=== PATIENT | female | born 1990 | race Caucasian/White ===

== ENCOUNTER 2016-09-10 08:44 | Emergency (ER) | payer OTHER ==
[~2016-09-10 08:44] MED LIST: CARDIZEM30 MG PO; METOPROLOL TART25 MG PO
== END 2016-09-10 10:20 | disposition home or self-care (01) ==
LOC: ER1 08:44
DX: K04.7 Periapical abscess without sinus (principal); F17.200 Nicotine dependence, unspecified, uncomplicated; Z88.6 Allergy status to analgesic agent
CPT/HCPCS: 99282

== ENCOUNTER → 2020-06-22 | Outpatient (CLI) | payer OTHER ==
[~2020-06-22] MED LIST changes: +AUGMENTIN 875-1 EACH PO; +BACTRIM DS TAB1 EACH PO; +BENTYL 20MG TAB20 MG PO; +BETAPACE 80MG T80 MG PO; +CEPHALEXIN500 MG PO; +CLINDAMYCIN HC300 MG PO; +DILTIAZEM ER120 M1 PO; +EFFEXOR XR 150150 MG PO; +EFFIENT PO; +HYDROCODONE-AC1 EACH PO; +IBUPROFEN600 MG PO; +IBUPROFEN800 MG PO; +LEVOTHYROXINE25 MC1 PO; +LEVOTHYROXINE25 MCG PO; +MACROBID 100 M100 MG PO; +NORFLEX 100 MG100 MG PO; +OMEPRAZOLE20 MG PO; +SOTALOL80 MG PO; +TOPAMAX50 MG PO; +ZOFRAN ODT 4 MG4 MG PO
== END ==
LOC: HEART 5 09:00
DX: R00.2 Palpitations (principal); R06.02 Shortness of breath; R07.9 Chest pain, unspecified; R55 Syncope and collapse; R53.83 Other fatigue; I51.7 Cardiomegaly
CPT/HCPCS: 93306

== ENCOUNTER → 2020-06-23 | Outpatient (CLI) | payer OTHER ==
[2020-06-23 12:32] LABS: RED BLOOD COUNT 4.37 M/UL (4.00-5.10); WHITE BLOOD COUNT 6.1 K/UL (4.5-11.0)
[2020-06-23 12:56] LABS: BUN/CREATININE RATIO 8 (0-10)
== END ==
LOC: LAB 11:55
PROVIDERS: Internal Medicine Cardiovascular Disease
DX: R07.9 Chest pain, unspecified (principal); R53.83 Other fatigue; R00.2 Palpitations; R06.02 Shortness of breath; R55 Syncope and collapse
CPT/HCPCS: 36415; 80048; 85025

== ENCOUNTER 2020-07-06 06:59 | Outpatient (CLI) | payer OTHER ==
[~2020-07-06] VITALS: Ht 167.6 cm; Wt 111.1 kg
[~2020-07-06 06:59] MED LIST changes: -BETAPACE 80MG T80 MG PO; -CEPHALEXIN500 MG PO; -CLINDAMYCIN HC300 MG PO; -DILTIAZEM ER120 M1 PO; -EFFEXOR XR 150150 MG PO; -EFFIENT PO; -HYDROCODONE-AC1 EACH PO; -IBUPROFEN600 MG PO; -IBUPROFEN800 MG PO; -LEVOTHYROXINE25 MC1 PO; -LEVOTHYROXINE25 MCG PO; -NORFLEX 100 MG100 MG PO; -OMEPRAZOLE20 MG PO; -SOTALOL80 MG PO; -TOPAMAX50 MG PO
[2020-07-06] MEDS ORDERED: METOPROLOL TART25 MG PO (08:04)
[2020-07-06] MEDS ORDERED: EFFEXOR XR 150150 MG PO (08:04)
[2020-07-06] MEDS ORDERED: TOPAMAX50 MG PO (08:05)
[2020-07-06] MEDS ORDERED: OMEPRAZOLE20 MG PO (08:05)
[2020-07-06] MEDS ORDERED: LEVOTHYROXINE25 MCG PO (08:06)
[2020-07-06] MEDS ORDERED: DILTIAZEM ER120 M1 PO (08:07)
[2020-07-06] MEDS ORDERED: IBUPROFEN800 MG PO (08:08)
[2020-07-06] MEDS ORDERED: SOTALOL80 MG PO (11:39)
[2020-07-06] MEDS ORDERED: CLINDAMYCIN HC300 MG PO (11:39)
[2020-07-06] MEDS ORDERED: HYDROCODONE-AC1 EACH PO (11:39)
[2020-07-06] MEDS ORDERED: CEPHALEXIN500 MG PO (11:39)
== END 2020-07-07 11:37 | disposition home or self-care (01) ==
LOC: CATH 06:59 → PROG CARE 13:17 → CATH 07-07 11:37
DX: I47.2 Ventricular tachycardia (principal); I49.01 Ventricular fibrillation; E03.9 Hypothyroidism, unspecified; K21.9 Gastro-esophageal reflux disease without esophagitis; F32.9 Major depressive disorder, single episode, unspecified; Z20.822 Contact with and (suspected) exposure to COVID-19; Z95.0 Presence of cardiac pacemaker; Z87.891 Personal history of nicotine dependence; Z98.890 Other specified postprocedural states; Z82.49 Family history of ischemic heart disease and other diseases of the circulatory system; Z88.6 Allergy status to analgesic agent; Z79.899 Other long term (current) drug therapy
CPT/HCPCS: 33249; 36415; 71045; 84703; 87635; 93005; 93620; 99152; 99153; C1721; C1730; C1766; C1777; C1898; J1200; J1644; J2250; J2550; J3010; J3370; J7040; J7050; J7070

== ENCOUNTER 2020-09-13 09:51 | Emergency (ER) | payer OTHER ==
[~2020-09-13 09:51] MED LIST changes: +CEPHALEXIN500 MG PO; +CLINDAMYCIN HC300 MG PO; +DILTIAZEM ER120 M1 PO; +EFFEXOR XR 150150 MG PO; +HYDROCODONE-AC1 EACH PO; +IBUPROFEN800 MG PO; +LEVOTHYROXINE25 MCG PO; +OMEPRAZOLE20 MG PO; +SOTALOL80 MG PO; +TOPAMAX50 MG PO
[2020-09-13] MEDS ORDERED: IBUPROFEN600 MG PO (11:26)
[2020-09-13] MEDS ORDERED: NORFLEX 100 MG100 MG PO (11:26)
== END 2020-09-13 11:35 | disposition home or self-care (01) ==
LOC: ER1 09:51
DX: S39.012A Strain of muscle, fascia and tendon of lower back, initial encounter (principal); S16.1XXA Strain of muscle, fascia and tendon at neck level, initial encounter; Z88.8 Allergy status to other drugs, medicaments and biological substances; V49.9XXA Car occupant (driver) (passenger) injured in unspecified traffic accident, initial encounter; Y92.410 Unspecified street and highway as the place of occurrence of the external cause
CPT/HCPCS: 71045; 72040; 72110; 99283

== ENCOUNTER 2020-11-16 17:31 | Observation (INO) | payer OTHER ==
[~2020-11-16] VITALS: Ht 167.6 cm; Wt 118.4 kg
[~2020-11-16 17:31] MED LIST changes: +IBUPROFEN600 MG PO; +NORFLEX 100 MG100 MG PO
[2020-11-16 18:42] LABS: HEMOGLOBIN 12.1 gm/dl (12.3-15.3); RED BLOOD COUNT 4.39 M/UL (4.00-5.10); WHITE BLOOD COUNT 8.3 K/UL (4.5-11.0)
[2020-11-16 19:05] LABS: BUN/CREATININE RATIO 8 (0-10)
[2020-11-17] MEDS ORDERED: EFFIENT PO (04:29)
[2020-11-17] MEDS ORDERED: LEVOTHYROXINE25 MC1 PO (04:30)
[2020-11-17] MEDS ORDERED: BETAPACE 80MG T80 MG PO (17:23)
== END 2020-11-17 18:23 | disposition home or self-care (01) ==
LOC: ER1 17:31 → CDU 22:40 → PROG CARE 22:40
PROVIDERS: Physician Assistant; ADMIT Internal Medicine
DX: I47.2 Ventricular tachycardia (principal); E03.9 Hypothyroidism, unspecified; F32.9 Major depressive disorder, single episode, unspecified; F41.9 Anxiety disorder, unspecified; F17.290 Nicotine dependence, other tobacco product, uncomplicated; K21.9 Gastro-esophageal reflux disease without esophagitis; E66.9 Obesity, unspecified; Z68.41 Body mass index [BMI] 40.0-44.9, adult; Z20.822 Contact with and (suspected) exposure to COVID-19; Z95.810 Presence of automatic (implantable) cardiac defibrillator; Z79.2 Long term (current) use of antibiotics; Z79.899 Other long term (current) drug therapy; Z88.6 Allergy status to analgesic agent
CPT/HCPCS: 36415; 71045; 80053; 80061; 82550; 82553; 83036; 83735; 83874; 84100; 84439; 84443; 84484; 84703; 85025; 85379; 93005; 96374; 99285; G0378; Q9967; U0002

== ENCOUNTER 2021-02-15 14:09 | Emergency (ER) | payer OTHER ==
[~2021-02-15 14:09] MED LIST changes: +BETAPACE 80MG T80 MG PO; +EFFIENT PO; +LEVOTHYROXINE25 MC1 PO
[2021-02-15] MEDS ORDERED: ONDANSETRON ODT4 MG SL (16:28)
[2021-02-15] MEDS ORDERED: IBUPROFEN800 MG PO (16:28)
== END 2021-02-15 16:40 | disposition home or self-care (01) ==
LOC: ER1 14:09
DX: S63.92XA Sprain of unspecified part of left wrist and hand, initial encounter (principal); K21.9 Gastro-esophageal reflux disease without esophagitis; F17.290 Nicotine dependence, other tobacco product, uncomplicated; E03.9 Hypothyroidism, unspecified; Z79.899 Other long term (current) drug therapy; W06.XXXA Fall from bed, initial encounter; Y92.009 Unspecified place in unspecified non-institutional (private) residence as the place of occurrence of the external cause
CPT/HCPCS: 29125; 73110; 73130; 99283

== ENCOUNTER 2021-03-30 00:51 | Emergency (ER) | payer OTHER ==
[~2021-03-30 00:51] MED LIST changes: +CARTIA XT120 MG PO; +EFFEXOR XR 75 M75 MG PO; +IBU800 MG PO; +MELATONIN10 M2 PO; +OMNICEF 300 MG300 MG PO; +ONDANSETRON ODT4 MG SL; +PROPAFENONE HC150 MG PO; +TYLENOL EXTRA500 MG PO; +WELLBUTRIN 75 M75 MG PO
[2021-03-30 01:51] LABS: HEMOGLOBIN 12.1 gm/dl (12.3-15.3); RED BLOOD COUNT 4.39 M/UL (4.00-5.10)
[2021-03-30 02:16] LABS: BUN/CREATININE RATIO 13 (0-10)
== END 2021-03-30 03:25 | disposition home or self-care (01) ==
LOC: ER1 00:51
PROVIDERS: Family Medicine
DX: R07.89 Other chest pain (principal); F41.9 Anxiety disorder, unspecified; Z20.822 Contact with and (suspected) exposure to COVID-19; F17.290 Nicotine dependence, other tobacco product, uncomplicated; E66.9 Obesity, unspecified; Z88.6 Allergy status to analgesic agent; Z95.810 Presence of automatic (implantable) cardiac defibrillator
CPT/HCPCS: 71045; 80048; 82550; 82553; 83874; 84484; 85025; 93005; 99285

== ENCOUNTER 2021-05-02 08:27 | Emergency (ER) | payer OTHER | END 2021-05-02 10:39 | disposition home or self-care (01) | LOC: ER1 08:27 | DX: T78.40XA Allergy, unspecified, initial encounter (principal); K02.9 Dental caries, unspecified; R11.0 Nausea; X58.XXXA Exposure to other specified factors, initial encounter | CPT/HCPCS: 96374; 99283; J2405; J2930 ==